=== PATIENT | male | born 1975 ===

== ENCOUNTER 2021-08-13 08:10 | Outpatient (CLI) | payer SELFPAY ==
[~2021-08-13] VITALS: Ht 180.3 cm; Wt 86.3 kg
[2021-08-13 09:00] VITALS: BP 116/82; PULSE 91; TEMP 99.1
[2021-08-13] MEDS ORDERED: TESSALON P100 MG/CAP PO (09:23)
[2021-08-13] MEDS ORDERED: SUBOXONE 8 MG-21 TAB SL (09:24)
[2021-08-13 09:25] VITALS: BP 121/81; PULSE 88
[2021-08-13 09:55] VITALS: BP 123/85; PULSE 87
[2021-08-13 10:25] VITALS: BP 123/84; PULSE 77
== END 2021-08-13 10:36 ==
LOC: EUO 08:10
DX: J02.9 Acute pharyngitis, unspecified (principal)
CPT/HCPCS: Q0244